=== PATIENT | male | born 1990 | race Caucasian/White ===

== ENCOUNTER 2019-09-27 09:58 | Emergency (ER) | payer SELFPAY ==
[2019-09-27 10:23] VITALS: BP 112/53; PULSE 95; RESP 20; TEMP 36.2; O2SAT 98
--- NOTE | 2019-09-27 10:30 | ED.URI ---
HPI - URI/Sore Throat General Chief Complaint: Upper Respiratory Infection Stated Complaint: possible flu Source: patient Mode of arrival: ambulatory History of Present Illness HPI Narrative: 3-4 days of rhinorrhea, post nasal drip, episodes of chills. Today has a moderately severe sore throat, sharp. Has had a bitemporal headache for 2 months; worse in the past 4 days, #6/10, dull. Denies neck pain/photophobia. No fever. Has a chronic smokers cough which has not changed recently. He denies SOB. Has not taken medication for this. Related Data Home Medications Medication Instructions Recorded Confirmed No Home Medications 09/27/19 09/27/19 Allergies Allergy/AdvReac Type Severity Reaction Status Date / Time No Known Allergies Allergy Verified 09/27/19 10:22 Review of Systems Constitutional: Constitutional: Denies body ache(s) Eyes: Eyes: Denies blurry vision ENT: Comments: no ear symptoms Cardiovascular: Comments: no chest pain Respiratory: Respiratory: Reports no additional respiratory complaints Gastrointestinal: Gastrointestinal: Denies diarrhea and Denies vomiting PMFSH Social History Social History (Updated 09/27/19 @ 10:35 by Veto Preciado MD) Smoking packs per day: 1 Smoking cigarettes per day: 20.0 Smoking status: Current every day smoker Tobacco type: cigarettes Exam Const: General: cooperative, healthy appearing and other (occasional cough) Nutritional Appearance: well nourished HENMT: Face and sinus: sinuses nontender Mouth: Yes Normal oral and palatal mucosa present Throat: posterior oropharynx normal Neck: Lymphatic: no lymphadenopathy noted Chest: Chest palpation & inspection: normal inspection of the chest Resp: Effort & Inspection: normal respiratory effort and normal respiratory pattern GI: Inspection: normal to inspection GI Palp: No abdominal tenderness Course Vital Signs Vital signs: Vital Signs Temperature 36.2 C L 09/27/19 10:23 Pulse Rate 95 09/27/19 10:23 Respiratory Rate 20 09/27/19 10:23 Blood Pressure 112/53 L 09/27/19 10:23 Pulse Oximetry 98 09/27/19 10:23 Temperature 36.2 C L 09/27/19 10:23 Pulse Rate 95 09/27/19 10:23 Respiratory Rate 20 09/27/19 10:23 Blood Pressure 112/53 L 09/27/19 10:23 Pulse Oximetry 98 09/27/19 10:23 MDM - URI/Sore Throat MDM Narrative Medical decision making narrative: Strep, Influenza are negative. Differential Diagnosis Differential diagnosis: Likely upper respiratory infection Medical Records Attestation: I reviewed the patient's medical records. Lab Data Attestation: I reviewed the patient's lab results. Labs: Lab Results 09/27/19 Range/Units 10:34 Influenza Type A Ag Negative (Negative) Influenza Type B Ag Negative (Negative) Grp A Beta Strep Ag Negative Discharge Plan Discharge Clinical Impression: Acute lower respiratory tract infection Patient Disposition: Home, Self-Care Condition: Stable Instructions: Acute Headache (ED), Viral Syndrome (ED), General Headache (ED) Additional Instructions: Return if worse. Follow up with primary care provider in 3 -5 days for recheck and to discuss chronic headaches. Prescriptions: No Action No Home Medications RF: 0 Follow-up/Referrals: PHYSICIAN NOT ON STAFF,NONSTAFF [Primary Care Provider] - Stand Alone Forms: Work/School Release IP Time of Disposition: 11:11
[2019-09-27 10:55] LABS: Influenza Control Valid (Valid)
[2019-09-27 11:30] VITALS: RESP 16
== END 2019-09-27 11:31 | disposition home or self-care (01) ==
PROVIDERS: Emergency Provider Family Medicine
DX: J22 Unspecified acute lower respiratory infection (principal)
CPT/HCPCS: 87081; 87804; 87880; 99283

== ENCOUNTER 2020-09-03 16:25 | Emergency (ER) | payer BC, SELFPAY ==
--- NOTE | 2020-09-03 16:28 | ED.NECK ---
HPI - Neck Pain/Injury General Chief Complaint: Neck Pain/Injury Stated Complaint: neck tightness Time Seen by Provider: 09/03/20 16:35 Source: patient Mode of arrival: ambulatory Limitations: no limitations History of Present Illness HPI Narrative: 30-year-old man comes in today complaining of episodic left-sided chest pain, neck pain and pain radiating down his left arm. Patient states that he shoveled snow for 5 days ago but 3 days ago he began to have left-sided neck pain. Pain is not exacerbated by movement. He states that today he had 2 episodes of left-sided chest pain which has since resolved. He also states that on waking today he had pain going down the medial aspect of his left arm to his hand and had numbness of his 4th and 5th digits on the left. Those symptoms have since resolved , however he feels fatigued. He denies any fever, cough, shortness of breath, nausea, vomiting, lightheadedness, syncope, sweating, or recent illness. Patient states he is a smoker and has a great grandmother that at 37 of a heart attack. MD complaint: neck pain Onset (ago): day(s) (3) Place: home Radiation: left lateral and left upper extremity Severity: moderate Quality: sharp Duration: constant Relieving factors: none Exacerbating factors: none Associated symptoms: numbness Treatments prior to arrival: none Related Data Allergies Allergy/AdvReac Type Severity Reaction Status Date / Time No Known Allergies Allergy Verified 09/03/20 16:41 Review of Systems Constitutional: Constitutional: Denies chills, Denies fever(s) and Denies weakness Eyes: Eyes: Denies change in vision and Denies photophobia ENT: Denies dysphagia, Denies nasal congestion and Denies sore throat Cardiovascular: Cardiovascular: Denies chest pain and Denies radiating jaw, neck or arm pain Respiratory: Respiratory: Denies cough, Denies dyspnea and Denies wheezing Gastrointestinal: Gastrointestinal: Denies abdominal pain, Denies diarrhea and Denies vomiting Genitourinary: Genitourinary: Denies dysuria and Denies urinary frequency Musculoskeletal: Musculoskeletal: Denies arthralgias and Denies joint swelling Integumentary/Breasts: Skin/Breast: Denies pruritus, Denies erythema and Denies rash Neurologic: Denies vertigo, Denies dizziness and Denies syncope Hematologic/Lymphatic: Hematologic/Lymphatic: Denies easy bleeding and Denies easy bruising Allergic/Immunologic: Allergic/Immunologic: Denies lip swelling and Denies throat swelling [facility] Surgical History Surgical History History of appendectomy Social History Social History Smoking packs per day: 1 Smoking cigarettes per day: 20.0 Smoking status: Current every day smoker Tobacco type: cigarettes Gender identity (if verbalized by the patient): Male Exam Const: General: healthy appearing and alert Nutritional Appearance: obese Orientation/consciousness: patient oriented x3 Other: mild acute distress. HENMT: Head: normal to inspection Ears: external ears normal, TM's normal bilaterally and EAC's normal General nose exam: Normal nares present Face and sinus: normal facial exam Mouth: Yes moist mucous membranes Throat: posterior oropharynx normal Eyes: Conjunctivae: conjunctivae normal Pupils: Equal, round and reactive pupils present EOM: EOMs intact bilaterally Neck: Neck: normal visual inspection and no lymphadenopathy Other: Normal range of motion. No tenderness. Resp: Effort & Inspection: normal respiratory effort and not labored Auscultation: clear to auscultation bilaterally and no wheezes Cardio: Rate: regular rate Rhythm: regular rhythm Heart sounds: no murmurs Skin: General skin exam: normal color, no jaundice and no pallor Rashes: no rashes Neuro: General: patient oriented x3, moves all extremities and CN's II-XI intact bilaterally Cranial
[2020-09-03 16:36] VITALS: BP 148/91; PULSE 75; RESP 20; TEMP 36.5; O2SAT 98
--- NOTE | 2020-09-03 16:42 | ECG_ITS ---
Measurements Intervals [place] Rate: 84 P: 54 GA: 177 QRS: 29 QRSD: 90 T: 21 QT: 353 QTc: 419 Interpretive Statements SINUS RHYTHM MINIMAL Q WAVES- INFERIOR LEADS BORDERLINE ECG Electronically Signed On 09-05-2020 6:54:48 YARD INSPECTOR by Carlito Light D.O.
[2020-09-03 17:14] LABS: Basophils Absolute Auto 0.07 K/mm3 (0.00-0.10); Basophils Percent Auto 0.6 % (0.0-1.0); Eosinophils Absolute Auto 0.42 K/mm3 (0.02-0.50); Eosinophils Percent Auto 3.7 % (1.0-6.0); Hematocrit 44.1 % (40.0-54.0); Hemoglobin 15.1 g/dL (14.0-18.0); Immature Granulocyte Absolute 0.03 K/mm3 (0.00-0.00); Immature Granulocyte Percent A 0.3 % (0.0-0.0); Lymphocytes Absolute Auto 2.95 K/mm3 (1.10-4.50); Lymphocytes Percent Auto 26.1 % (18.0-42.0); Mean Corpuscular HGB Conc 34.2 g/dL (32.0-36.0); Mean Corpuscular Volume 87.5 fL (78.0-102.0); Mean Platelet Volume 11.6 fl (8.7-11.0); Monocytes Absolute Auto 0.95 K/mm3 (0.10-0.90); Monocytes Percent Auto 8.4 % (2.0-11.0); Neutrophils Absolute Auto 6.9 K/mm3 (1.7-7.2); Neutrophils Percent Auto 60.9 % (50.0-70.0); Platelet Count Result 263 K/mm3 (150-420); Red Blood Count 5.04 M/mm3 (4.70-6.10); Red Cell Distribution Width 12.6 % (11.6-14.4); White Blood Count 11.3 K/mm3 (4.8-10.8)
[2020-09-03 17:25] LABS: Alanine Aminotransferase 60 U/L (16-63); Albumin Level 4.1 g/dL (3.4-5.0); Alkaline Phosphatase 72 U/L (46-116); Anion Gap 7 mmol/L (8-16); Aspartate Amino Transferase 35 U/L (15-37); Bilirubin,Total 0.4 mg/dL (0.00-1.00); Blood Urea Nitrogen 9 mg/dL (7-18); Calcium 8.8 mg/dL (8.5-10.1); Carbon Dioxide 28 mmol/L (21-32); Chloride 104 mmol/L (98-108); Estimated CRCL calculation 97 ml/min; Estimated Glomerular Filt Rate > 60; Glucose 92 mg/dL (70-99); Osmolality Calculated 286 mOsm/kg (285-295); Potassium 4.1 mmol/L (3.5-5.1); Sodium 139 mmol/L (136-145); Troponin I 4.7 ng/L (0.00-60.4)
[2020-09-03 17:53] VITALS: BP 130/86; PULSE 66; RESP 20; TEMP 36.7; O2SAT 97
[2020-09-03 18:59] LABS: Thyroid Stimulating Hormone Reflex 1.71 u/IU/mL (0.36-3.74)
== END 2020-09-03 18:05 | disposition home or self-care (01) ==
PROVIDERS: Emergency Provider Emergency Medicine
DX: M54.12 Radiculopathy, cervical region (principal); F17.200 Nicotine dependence, unspecified, uncomplicated
CPT/HCPCS: 80053; 84443; 84484; 85025; 87081; 87880; 93005; 99283; 99284

== ENCOUNTER 2021-01-16 12:29 | Emergency (ER) | payer SELFPAY ==
[2021-01-16 12:30] VITALS: BP 132/98; PULSE 102; RESP 16; TEMP 37.3; O2SAT 96
--- NOTE | 2021-01-16 12:48 | ED.DENTAL ---
HPI - Dental/Oral General Stated complaint: toothache Source: patient Mode of arrival: ambulatory Limitations: no limitations History of Present Illness HPI Narrative: this is 30-year-old male presents with dental pain with surrounding gum inflammation and tenderness in the left submandibular area with chills no fevers no shortness of breath no nausea vomiting. Complaint: tooth pain Teeth map: 1. left lower molar pain tenderness Onset (ago): day(s) Duration: constant Severity: moderate Severity scale (1-10): 6 Relieving factors: NSAIDs Exacerbating factors: chewing and cold Context: history of dental caries Associated symptoms: gum swelling Related Data Home Medications Medication Instructions Recorded Confirmed No Home Medications 01/16/21 01/16/21 Allergies Allergy/AdvReac Type Severity Reaction Status Date / Time No Known Allergies Allergy Verified 09/03/20 16:41 Review of Systems Review of Systems: All systems reviewed & are unremarkable except as noted in HPI and below PMFSH Past Medical History Medical History Patient denies significant medical history Surgical History Surgical History History of appendectomy Social History Social History Smoking packs per day: 1 Smoking cigarettes per day: 20.0 Smoking status: Current every day smoker Tobacco type: cigarettes Gender identity (if verbalized by the patient): Male Exam Const: General: no acute distress and alert Orientation/consciousness: patient oriented x3 HENMT: Head: normal to inspection Eyes: Conjunctivae: conjunctivae normal Pupils: Equal, round and reactive pupils present Neck: Neck: normal visual inspection Other: Tender left submandibular adenopathy Chest: Chest palpation & inspection: normal inspection of the chest Resp: Effort & Inspection: normal respiratory effort Auscultation: clear to auscultation bilaterally Cardio: Rate: regular rate Rhythm: regular rhythm GI: Auscultation: normal bowel sounds Back/Spine/Pelvis: Back: no CVA tenderness Skin: General skin exam: normal color Rashes: no rashes Extrem: General: normal to inspection and no pedal edema Psych: Mental Status: mental status grossly normal Affect: normal affect Attitude: cooperative Course Course Emergency Course: advised to take medication as prescribed and follow-up with his dentist Critical Care Time Critical Care Time Critical Care Time: No Discharge Plan Discharge Clinical Impression: Toothache, Dental abscess Patient Disposition: Home, Self-Care Condition: Stable Instructions: Antibiotic Form, Dental Abscess (ED), Toothache (ED) Additional Instructions: take medicine as prescribed, follow-up with dentist as soon as possible. Prescriptions: New amoxicillin 500 mg tablet 500 mg PO TID Qty: 30 RF: 0 naproxen 500 mg tablet 500 mg PO BID Qty: 14 RF: 0 No Action No Home Medications RF: 0 Follow-up/Referrals: Jonathan Anderson MD [Primary Care Provider] - Stand Alone Forms: Work/School Release IP Time of Disposition: 12:52
[2021-01-16 12:57] VITALS: BP 132/98; PULSE 102; RESP 16; TEMP 37.4; O2SAT 96
== END 2021-01-16 12:59 | disposition home or self-care (01) ==
PROVIDERS: Emergency Provider Emergency Medicine; PCP Internal Medicine
DX: K08.89 Other specified disorders of teeth and supporting structures (principal); K04.7 Periapical abscess without sinus
CPT/HCPCS: 99283

== ENCOUNTER 2021-12-27 16:02 | Emergency (ER) | payer SELFPAY ==
[2021-12-27 16:47] VITALS: BP 142/95; PULSE 76; RESP 20; TEMP 36.5; O2SAT 96
--- NOTE | 2021-12-27 17:57 | ED.DENTAL ---
HPI - Dental/Oral General Chief complaint: Dental/Oral Stated complaint: tooth infection, nausea, headache Time Seen by Provider: 12/27/21 16:06 Source: patient and RN notes reviewed Mode of arrival: ambulatory Limitations: no limitations History of Present Illness Complaint: tooth pain Onset (ago): hour(s) (8) Duration: constant Severity: mild Severity scale (1-10): 3 Relieving factors: nothing Exacerbating factors: chewing Context: history of dental caries Treatment prior to arrival: none Related Data Allergies Allergy/AdvReac Type Severity Reaction Status Date / Time No Known Allergies Allergy Verified 12/27/21 16:50 Review of Systems Review of Systems: All systems reviewed & are unremarkable except as noted in HPI and below Constitutional: Constitutional: Reports no additional constitutional complaints Eyes: Eyes: Reports no additional eye complaints ENT: Reports system reviewed and no additional complaints, except as documented Comments: toothache Cardiovascular: Cardiovascular: Reports no additional cardiovascular complaints Respiratory: Respiratory: Reports no additional respiratory complaints Gastrointestinal: Gastrointestinal: Reports no additional gastrointestinal complaints Musculoskeletal: Musculoskeletal: Reports no additional musculoskeletal complaints Integumentary/Breasts: Skin/Breast: Reports system reviewed and no additional complaints, except as docu Neurologic: Reports system reviewed and no additional complaints, except as documented Psychiatric: Psychiatric: Reports no additional psychiatric complaints Endocrine: Endocrine: Reports no additional endocrine complaints Hematologic/Lymphatic: Hematologic/Lymphatic: Reports no additional hematologic/lymphatic complaints Allergic/Immunologic: Allergic/Immunologic: Reports no additional allergic/immunologic complaints PMFSH Past Medical History Medical History (Updated 12/27/21 @ 18:41 by Gregory Cooney MD) Dental caries Patient denies significant medical history Toothache Surgical History Surgical History History of appendectomy Social History Social History Smoking packs per day: 1 Smoking cigarettes per day: 20.0 Smoking status: Current every day smoker Tobacco type: cigarettes Gender identity (if verbalized by the patient): Male Exam Const: General: healthy appearing and no acute distress Nutritional Appearance: well nourished Orientation/consciousness: patient oriented x3 Limitations: no limitations HENMT: Head: normal to inspection Ears: external ears normal, TM's normal bilaterally and EAC's normal General nose exam: Normal external nose present and Normal nares present Face and sinus: normal facial exam and sinuses nontender Mouth: Yes Normal oral and palatal mucosa present and Yes moist mucous membranes Teeth and gingiva: dentition normal Throat: posterior oropharynx normal Other: left lower molar broken tooth pain. Eyes: Conjunctivae: conjunctivae normal Pupils: Equal, round and reactive pupils present EOM: EOMs intact bilaterally Neck: Neck: normal visual inspection, no lymphadenopathy and no meningeal signs Chest: Chest palpation & inspection: normal inspection of the chest Resp: Effort & Inspection: normal respiratory effort Auscultation: clear to auscultation bilaterally Cardio: Rate: regular rate Rhythm: regular rhythm GI: GI Palp: Yes Soft to palpation and No Tenderness to palpation present (GI) Auscultation: normal bowel sounds : General: Yes bladder normal to palpation and Yes no CVA tenderness Back/Spine/Pelvis: Back: no CVA tenderness Skin: General skin exam: normal color Rashes: no rashes Wounds: no wounds Neuro: General: patient oriented x3, moves all extremities, no meningeal signs, no focal motor deficits and CN's II-XI intact bilaterally Cranial
[2021-12-27] MEDS: ACETAMINOPHEN 325 MG TABLET 650 MG PO (18:14)
[2021-12-27 18:18] VITALS: BP 138/88; PULSE 77; RESP 20; TEMP 36.7; O2SAT 97
== END 2021-12-27 18:20 | disposition home or self-care (01) ==
PROVIDERS: Emergency Provider Emergency Medicine; PCP Internal Medicine
DX: K02.9 Dental caries, unspecified (principal); K08.89 Other specified disorders of teeth and supporting structures
CPT/HCPCS: 99283; A9270

== ENCOUNTER 2024-11-16 15:52 | Emergency (ER) | payer SELFPAY ==
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
[2024-11-16 15:54] VITALS: BP 157/107; PULSE 117; RESP 20; TEMP 36.4; O2SAT 97
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
[2024-11-16] MEDS: IBUPROFEN 600 MG TABLET PO (16:06)
[2024-11-16] MEDS: HYDROcodone/acetaminophen (*CRX) 5-325 MG TABLET 1 TAB PO (16:06)
--- OUTSIDE RECORDS SUMMARY | 2024-11-16 16:27 | XMS_ITS | Clinical Summary ---
Author Organization [facility] Address [facility] [place] [address] Care Team Providers Care Professor Of Geography Name Role Phone Jonathan Anderson MD Primary Care Provider [phone] Medications No known medications Family History Medical History Relation Comments Diabetes Father Relation Status Comments Father Social History Tobacco Use Types Packs/Day Years Used Date Smoking Tobacco: Every Day Cigarettes 0.5 6 Smokeless Tobacco: Never Alcohol Use Standard Drinks/Week Comments Never 0 (1 standard drink = 0.6 oz pur e alcohol) Sex and Gender Information Value Date Recorded Sex Assigned at Not on file 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 Gender Identity Not on file Sexual Orientation Not on file Last Filed Vital Signs Vital Sign Reading Time Taken Comments Blood Pressure 145/93 02/11/2022 8:59 PM CDT Pulse 85 02/11/2022 8:59 PM CDT Temperature 36.7 C (98 F) 02/11/2022 8:59 PM CDT Respiratory Rate 16 02/11/2022 8:59 PM CDT Oxygen Saturation 100% 02/11/2022 8:59 PM CDT Inhaled Oxygen Concentration - - Weight 90.7 kg (200 lb) 02/11/2022 8:59 PM CDT Height 167.6 cm (5' 6 ) 02/11/2022 8:59 PM CDT Body Mass Index 32.28 02/11/2022 8:59 PM CDT Plan of Treatment Health Maintenance Due Date Last Done Comments Annual Physical 1991 Hepatitis C 2006 DTaP, Tdap and Td Vaccines (1 - Tdap) 2007 10/26/1992, 04/17/1990, 06/20/1989, Additional history exists Hepatitis B Vaccines (1 of 3 - 19+ 3-dose series) 2007 Pneumococcal Vaccine: Pediatrics (0 to 5 Years) and At-Risk Patients (6 to 49 Years) (1 of 2 - PCV) 2007 COVID-19 Vaccine ( - 2023- season) 2024 HPV Vaccines Aged Out No longer eligi ble based on patient's age to complete this topic Meningococcal B Vaccine Aged Out No l onger eligible based on patient's age to complete this topic Meningococcal Vaccine Aged Out No ale pao eligible based on patient's age to complete this topic RSV Immunizations Under 20 Months Aged Out No longer eligible based on patient's age to complete this topic Insurance GENERIC - [employer] Care Teams Professor Of Geography Relationship Specialty Start Date End Date Jonathan Anderson MD [address] [place] [id number] PCP - General INTERNAL MEDICINE 10/05/20
--- OUTSIDE RECORDS SUMMARY | 2024-11-16 17:00 | XMS_ITS | Clinical Summary ---
Author Organization [facility] Address [facility] [place] [address] Care Team Providers Care Senior Principal Software Engineer Name Role Phone Jonathan Anderson MD Primary Care Provider [phone] Medications No known medications Family History Medical [...] on file Legal Sex Male 5:55 PM HEALTHCARE NETWORK CONSULTANT Gender Identity Not on file Sexual Orientation [...] [employer] Care Teams Senior Principal Software Engineer Relationship Specialty Start Date End Date Jonathan Anderson MD [address] [place] [id number] PCP - General INTERNAL MEDICINE 10/05/20
[2024-11-16 17:05] VITALS: BP 139/94; PULSE 97; RESP 16; TEMP 36.5; O2SAT 96
== END 2024-11-16 17:08 | disposition home or self-care (01) ==
LOC: CHSED 16:53
PROVIDERS: Emergency Provider Emergency Medicine; PCP Family Medicine
DX: S01.531A Puncture wound without foreign body of lip, initial encounter (principal); K02.9 Dental caries, unspecified; Y04.2XXA Assault by strike against or bumped into by another person, initial encounter; F17.210 Nicotine dependence, cigarettes, uncomplicated
CPT/HCPCS: 70486; 99284; A9270

== ENCOUNTER 2025-05-11 21:27 | Emergency (ER) | payer SELFPAY ==
--- NOTE | ~2025-05-11 | XR_ITS ---
XR toe 1st RT min 2V 05/11/2025 22:05 INDICATION: Right first toe pain PROCEDURE: 4 views right first toe COMPARISON: No prior studies for comparison. FINDINGS: Fracture, dislocation or subluxation is not identified. Lisfranc joint intact. The soft tissues appear within normal limits. No foreign bodies are identified. IMPRESSION: 1: NO ACUTE BONE OR JOINT ABNORMALITY IDENTIFIED. Reviewed, dictated and finalized at location B.
[2025-05-11 21:37] VITALS: BP 156/87; PULSE 111; RESP 16; TEMP 36.6; O2SAT 98
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
--- NOTE | 2025-05-11 21:47 | PC.NURSE ---
PATIENT WAS EXPLAINED THE PROCESS FOR SUICIDAL IDEATION HERE AT [facility]. PATIENT VERBALIZED UNDERSTANDING. HE DOES NOT WANT TO HAVE EKG COMPLETED. DR WONG HAS BEEN NOTIFIED. PATIENT IS CALM AND COOPERATIVE WITH STAFF.
--- NOTE | 2025-05-11 21:54 | PC.NURSE ---
LABS HAVE BEEN DRAWN. SAM WITH XRAY AT THE BEDSIDE
[2025-05-11 21:58] LABS: Hematocrit 48.6 % (40.0-54.0); Hemoglobin 16.6 g/dL (14.0-18.0); Immature Granulocyte Percent A 0.4 % (0.0-0.0); Lymphocytes Absolute Auto 3.54 K/mm3 (1.10-4.50); Mean Corpuscular HGB Conc 34.2 g/dL (32-36); Mean Corpuscular Hemoglobin 29.4 pg (27.0-31.0); Mean Corpuscular Volume 86.0 fL (78.0-102.0); Nucleated Red Blood Cells Absolute Auto 0.00 K/mm3 (0.00-0.00); Nucleated Red Blood Cells Perc 0.0 % (0-0.0); Platelet Count Result 373 K/mm3 (150-420); Red Blood Count 5.65 M/mm3 (4.70-6.10); White Blood Count 13.5 K/mm3 (4.8-10.8)
[2025-05-11 22:11] LABS: Alanine Aminotransferase 35 U/L (6-50); Albumin Level 5.3 g/dL (3.5-5.1); Alkaline Phosphatase 73 U/L (38-126); Anion Gap 16 mmol/L (4-12); Aspartate Amino Transferase 36 U/L (17-59); Bilirubin,Total 0.6 mg/dL (0.2-1.3); Blood Urea Nitrogen 9 mg/dL (9-20); Calcium 9.7 mg/dL (8.4-10.2); Carbon Dioxide 25 mmol/L (22-30); Chloride 101 mmol/L (98-107); Estimated CRCL calculation 138 ml/min; Estimated Glomerular Filt Rate > 60; Glucose 111 mg/dL (65-110); Osmolality Calculated 293 mOsm/kg (285-295); Potassium 3.7 mmol/L (3.4-5.0); Sodium 142 mmol/L (137-145)
[2025-05-11 22:15] LABS: Total Protein > 11.0 g/dL (6.3-8.2)
[2025-05-11 22:18] LABS: Add Urine Microscopic? YES; Appearance Urine Clear (Clear); Glucose Urine UA Negative (Negative); Leukocyte Esterase Ur Negative LEU/UL (Negative); Nitrate Urine Negative (Negative); Specific Grav Ur >= 1.030 (1.010-1.020)
--- NOTE | 2025-05-11 22:19 | PC.NURSE ---
PATIENT HAS ASKED SEVERAL TIMES TO GO OUTSIDE TO SMOKE. INFORMED PATIENT HOSPITAL IS SMOKE FREE FACILITY. OFFERED NICOTINE PATCH SEVERAL TIMES. PATIENT HAS REFUSED NICOTINE PATCH
[2025-05-11 22:35] LABS: Cannabinoid Screen Urine Positive (Negative)
[2025-05-11 22:39] LABS: Influenza A QL RT-PCR Negative (Negative); Influenza B QL RT-PCR Negative (Negative); RSV RNA, RT-PCR Negative (Negative); SARS-CoV-2 RNA PCR Negative (Negative)
--- NOTE | 2025-05-11 22:41 | PC.NURSE ---
PATIENT WAS UPDATED ON BLOOD ALCOHOL LEVEL AND THAT [employer] HAS BEEN NOTIFIED.
[2025-05-11 22:42] LABS: Thyroid Stimulating Hormone Reflex 2.470 uIU/mL (0.465-4.68)
--- NOTE | 2025-05-11 23:11 | PC.NURSE ---
PATIENT IS CALM AND COOPERATIVE IN ROOM 5. MAO MOHAN, AT THE DOORWAY. NO NEEDS VOICED AT THIS TIME.
--- NOTE | 2025-05-11 23:20 | PC.NURSE ---
GARRETT WITH [address] ARE AT THE BEDSIDE
--- NOTE | 2025-05-12 00:04 | PC.NURSE ---
PATIENT SITTING QUIETLY ON STRETCHER TALKING WITH [facility] STAFF.
--- NOTE | 2025-05-12 00:25 | PC.NURSE ---
[facility] STAFF HAVE LEFT THE ROOM. MAO MOHAN, IS AT THE BEDSIDE. PATIENT IS CALM AND COOPERATIVE
--- NOTE | 2025-05-12 00:49 | PC.NURSE ---
SHAZIA WITH [facility] TALKED TO DR WONG. PLAN IS TO DISCHARGE TO A FRIENDS HOME.
--- NOTE | 2025-05-12 00:56 | PC.NURSE ---
2 BAGS OF PERSONAL ITEMS RETURNED TO PATIENT
[2025-05-12 01:15] VITALS: BP 137/79; PULSE 78; RESP 20; O2SAT 100
== END 2025-05-12 01:15 | disposition home or self-care (01) ==
PROVIDERS: Emergency Provider Emergency Medicine; Referring Provider Internal Medicine
DX: F32.9 Major depressive disorder, single episode, unspecified (principal); F17.210 Nicotine dependence, cigarettes, uncomplicated; Z20.822 Contact with and (suspected) exposure to COVID-19
CPT/HCPCS: 36415; 73660; 80053; 80307; 81001; 82077; 84443; 85025; 87637; 99284

== ENCOUNTER 2025-05-12 03:43 | Emergency (ER) | payer SELFPAY ==
[2025-05-12 03:55] VITALS: BP 132/97; PULSE 105; RESP 19; TEMP 36.7; O2SAT 100
--- NOTE | 2025-05-12 04:53 | PC.NURSE ---
This RN attempted to collect urine from pt, pt states he is not able to urinate at the moment. Cup of ice water given to pt per request
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
[2025-05-12 05:05] LABS: Hematocrit 47.5 % (42.0-52.0); Hemoglobin 16.2 g/dL (14.0-18.0); Immature Granulocyte Percent A 0.4 % (0-0.5); Lymphocytes Absolute Auto 3.73 K/mm3 (0.9-3.2); Mean Corpuscular HGB Conc 34.1 g/dl (32-36); Mean Corpuscular Hemoglobin 29.5 pg (26-34); Mean Corpuscular Volume 86.5 fl (80-100); Nucleated Red Blood Cells Absolute Auto 0.000 K/mm3 (0.0-0.012); Nucleated Red Blood Cells Perc 0.0 % (0.0-0.2); Platelet Count Result 343 k/mm3 (150-375); Red Blood Count 5.49 M/mm3 (4.6-6.20); White Blood Count 15.6 K/mm3 (4.5-10.0)
[2025-05-12 05:16] LABS: Alanine Aminotransferase 32 U/L (6-50); Albumin Level 4.8 g/dL (3.5-5.1); Alkaline Phosphatase 80 U/L (38-126); Anion Gap 9 mmol/L (4-12); Aspartate Amino Transferase 32 U/L (17-59); Bilirubin,Total 0.6 mg/dL (0.2-1.3); Blood Urea Nitrogen 11 mg/dL (9-20); Calcium 9.2 mg/dL (8.4-10.2); Carbon Dioxide 28 mmol/L (22-30); Chloride 101 mmol/L (98-107); Estimated CRCL calculation 92 ml/min; Estimated Glomerular Filt Rate > 60; Glucose 100 mg/dL (65-110); Potassium 4.1 mmol/L (3.4-5.0); Sodium 138 mmol/L (137-145); Total Protein 8.5 g/dL (6.3-8.2)
[2025-05-12 05:21] LABS: Acetaminophen < 10 ug/mL (10-30); Salicylate < 1.0 mg/dL (2-20)
[2025-05-12 05:37] LABS: Influenza A QL RT-PCR Negative (Negative); Influenza B QL RT-PCR Negative (Negative); RSV RNA, RT-PCR Negative (Negative); SARS-CoV-2 RNA PCR Negative (Negative)
[2025-05-12 05:47] LABS: Thyroid Stimulating Hormone 2.150 uIU/mL (0.465-4.680)
[2025-05-12 06:09] LABS: Cannabinoid Screen Urine Positive (Negative)
[2025-05-12 07:27] VITALS: BP 128/86; PULSE 79; RESP 18; O2SAT 99
--- NOTE | 2025-05-12 08:50 | PC.NURSE ---
Crisis team faxed records to facilities seeking placement. Pt will be voluntary, pt is calm and cooperative at this time.
--- NOTE | 2025-05-12 10:19 | PC.NURSE ---
Pt accepted to [facility], accepting is Dr Almonte. Requesting consents to be signed and faxed to facility at [phone], and additional records to be sent. Following receipt, will call back with bed assignment.
--- NOTE | 2025-05-12 10:55 | PC.NURSE ---
Records faxed w/ consent signed to [facility] as requested, awaiting bed assignment.
[2025-05-12 11:00] VITALS: BP 123/76; PULSE 71; RESP 16; TEMP 36.6; O2SAT 98
--- NOTE | 2025-05-12 12:19 | PC.NURSE ---
Received call from [facility], accepting pt. Accepting provider is Dr. Owens. Report can be called at 1300-13:15. Updated EDP, propellant charge loader and pt.
--- NOTE | 2025-05-12 15:38 | PC.NURSE ---
attempted to call report again to [facility]. they state they have no records of this pt being accepted at their facility. awnings mechanic made aware. called [facility] intake and state her coworker is working on it and will give us a call back. call back number given.
--- NOTE | 2025-05-12 15:58 | PC.NURSE ---
[facility] called and stated that someone named Shaylee told them that pt received a bed elsewhere and no longer needed placement there. states that was not the case and that we still need placement. they sated to fax voluntary paperwork over again. faxed paperwork to [phone].
--- NOTE | 2025-05-12 16:20 | PC.NURSE ---
Tiara with [facility] called and states new accepting physician is Dr. Camacho. States to call report at 5:15. 2 numbers were given to call report. [phone]. [phone]. Tiara states if they do not answer or will not give report to call her at [phone].
[2025-05-12] MEDS: NICOTINE (*PBKC) 14 MG PATCH 1 PATCH TRANSDERM (17:12)
[2025-05-12 17:13] VITALS: BP 141/94; PULSE 80; RESP 14; O2SAT 97
--- NOTE | 2025-05-12 17:28 | PC.NURSE ---
Report called to Mimi MEJIA at [facility] at [phone], apartment community assistant manager arranging for transport at this time.
[2025-05-12] MEDS: LORazepam (*CRX) 1 MG TABLET PO (18:48)
== END 2025-05-12 23:42 ==
PROVIDERS: Emergency Provider Student in an Organized Health Care Education/Training Program
DX: R45.851 Suicidal ideations (principal); F17.210 Nicotine dependence, cigarettes, uncomplicated
CPT/HCPCS: 36415; 80053; 80143; 80179; 80307; 82077; 84443; 85025; 87637; 99285; A9270